=== PATIENT | female | born 1980 | race Caucasian/White ===

== ENCOUNTER 2020-10-20 17:18 | Outpatient (REF) | payer OTHER, SELFPAY | END 2020-10-20 17:19 | disposition home or self-care (01) | LOC: HO.LAB 17:18 | PROVIDERS: PCP Internal Medicine; Visit Provider Internal Medicine | DX: Z20.828 Contact with and (suspected) exposure to other viral communicable diseases (principal) | CPT/HCPCS: C9803; U0003 ==

== ENCOUNTER 2020-11-27 10:34 | Outpatient (REF) | payer OTHER, SELFPAY | END 2020-11-27 10:35 | disposition home or self-care (01) | LOC: HO.LAB 10:34 | PROVIDERS: Visit Provider Internal Medicine | DX: Z20.828 Contact with and (suspected) exposure to other viral communicable diseases (principal) | CPT/HCPCS: 36415; C9803; U0003 ==

== ENCOUNTER 2021-06-13 10:36 | Outpatient (REF) | payer OTHER, SELFPAY ==
[2021-06-13 12:05] LABS: Alanine Aminotransferase 16 U/L (0-31); Albumin Level 4.4 g/dL (3.5-5.0); Alkaline Phosphatase 47 U/L (39-117); Anion Gap 14 (12-20); Aspartate Amino Transferase 19 U/L (5-31); Bilirubin Total 0.6 mg/dL (0.0-1.0); Blood Urea Nitrogen 13 mg/dL (9-16); Calcium 9.6 mg/dL (8.4-10.2); Carbon Dioxide 23 mmol/L (22-29); Chloride 106 mmol/L (96-108); Cholesterol 240 mg/dL; Estimated Glomerular Filt Rate > 60; Glucose Fasting 93 mg/dL (60-99); HDL Cholesterol 36 mg/dL; LDL Cholesterol Calculated 162 mg/dl; Potassium 4.1 mmol/L (3.3-5.1); Sodium 139 mmol/L (135-145); Total Protein 7.4 g/dL (6.5-8.0); Triglycerides 211 mg/dL
== END 2021-06-13 10:37 | disposition home or self-care (01) ==
LOC: HO.LAB 10:36
PROVIDERS: PCP Internal Medicine; Visit Provider Internal Medicine
DX: E78.5 Hyperlipidemia, unspecified (principal)
CPT/HCPCS: 36415; 80053; 80061

== ENCOUNTER 2021-07-12 18:40 | Emergency (ER) | payer OTHER, SELFPAY ==
--- NOTE | ~2021-07-12 | XR_ITS ---
EXAMINATION: XR ANKLE, RIGHT CLINICAL INFORMATION: Injury with pain and swelling COMPARISON: None TECHNIQUE: AP, lateral, and mortise views of the right ankle. FINDINGS: Soft tissue swelling is seen about the ankle more so laterally. Underlying bony structures are unremarkable with no acute fracture or dislocation. Ankle mortise is intact. XR/XR ankle RT min 3V IMPRESSION: Lateral soft tissue swelling but no acute bony abnormality.
[2021-07-12 19:34] VITALS: BP 110/58; PULSE 77; RESP 16; TEMP 36.9; O2SAT 100; BMI 26.0
[2021-07-12 21:21] VITALS: BP 105/68; PULSE 81; RESP 17; TEMP 36.8; O2SAT 98
--- NOTE | 2021-07-12 22:05 | ED.LOWEXIN ---
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 Related Data Previous Rx's Medication Instructions Recorded loratadine 10 mg tablet 10 mg PO DAILY 90 Days #90 tab 05/24/21 Allergies Allergy/AdvReac Type Severity Reaction Status Date / Time No Known Allergies Allergy Unknown UNKNOWN Verified 07/12/21 19:37 Review of Systems Review of Systems: All other systems are reviewed and are negative Constitutional: Reports as per HPI and Reports no additional constitutional complaints Eyes: Reports as per HPI and Reports no additional eye complaints Reports system reviewed and no additional complaints, except as documented Cardiovascular: Reports as per HPI and Reports no additional cardiovascular complaints Respiratory: Reports as per HPI and Reports no additional respiratory complaints Gastrointestinal: Reports as per HPI and Reports no additional gastrointestinal complaints Genitourinary: Reports no additional female genitourinary complaints Musculoskeletal: Reports no additional musculoskeletal complaints Skin/Breast: Reports system reviewed and no additional complaints, except as docu Psychiatric: Reports no additional psychiatric complaints Endocrine: Reports no additional endocrine complaints Hematologic/Lymphatic: Reports no additional hematologic/lymphatic complaints Allergic/Immunologic: Reports no additional allergic/immunologic complaints Reports system reviewed and no additional complaints, except as documented and Reports Abnormal speech present PMFSH Past Medical History Medical History Allergic rhinitis Dyslipidemia Surgical History No pertinent past surgical history Family History Family History Mother Diabetes mellitus Father No problems noted. Social History Social History Housing: Apartment Alcohol intake: current Alcohol intake frequency: holidays/special occasions only Alcohol type: beer Patient Tobacco Use Status: Never used Tobacco e-Cigarette/Vaping Use: Never Used Second Hand Smoke Exposure: No Advance Directives: No Advance Directives Information Provided: Yes Patient : No service: No Current occupational status: employed Current occupational exposures/hazards: No Physical Exam Vital Signs: Vital Signs: Last Vital Signs Temp 98.3 F 07/12/21 21:21 Pulse 81 07/12/21 21:21 Resp 17 07/12/21 21:21 BP 105/68 07/12/21 21:21 Pulse Ox 98 07/12/21 21:21 Body Mass Index 26.0 Vital signs have been reviewed as appeared to be correct. Blood pressure normal. Heart rate normal. Respiration rate normal. Temperature normal. Oxygen saturation normal. Appearance: Alert. Oriented X3. No acute distress. Head: Normal external exam. Normocephalic. Atraumatic. No Rosales signs noted. No raccoon eyes noted Eyes: PERRLA. EOMI. Conjunctiva and sclera normal. Eyelids normal. ENT: TM's Normal. Pharynx normal. Uvula midline. Moist mucous membranes. No trismus noted. No drooling noted. No muffled voice noted. Neck: Normal inspection. Neck supple. FROM. No adenopathy. Thyroid Normal. No meningeal signs. No neck mass noted. CVS: Normal heart rate and rhythm. Heart sound normal. No murmurs noted. Pulses normal throughout. Respiratory: No respiratory distress. Painless inspiration. Breath sounds normal. No wheezes/rales/rhonchi noted. Chest nontender. No accessory muscle usage noted or decreased air movement noted. Abdomen: Soft and nontender. Bowel sounds normal in all 4 quadrants. No distention noted. No organomegaly noted. No visible injury noted. Back: No CVA tenderness. Full range of motion noted. Skin: Skin warm and dry. Normal skin color. Normal skin turgor. No rashes/lesions/lacerations noted. Extremities: Right ankle ecchymosis and swelling more on the lateral malleolus, no deformity, no step-off. Neuro: Oriented X 3. Cranial nerve exam: II-XII are grossly intact No motor deficit. No sensory deficit. Reflexes normal. Course Course Course Narrative: Assessment and plan. Right ankle sprain. NSAIDs, ice, Derrick bandage, crutches for non weight-bearing. MDM - Extremity Injury (Lower) Imaging Data Right ankle x-ray: Radiologist's impression: Lateral soft tissue swelling but no acute bony abnormality. Discharge Plan Discharge Clinical Impression: Ankle sprain Qualifiers: Encounter type: initial encounter Laterality: right Patient Disposition: Home, Self-Care Instructions: Ankle Sprain (ED) Prescriptions: No Action loratadine 10 mg tablet 10 mg PO DAILY 90 Days Qty: 90 RF: 2 Referrals: Yissel Saavedra MD [Primary Care Provider] - 2 days Stand Alone Forms: Work/School Release
== END 2021-07-12 22:47 | disposition home or self-care (01) ==
PROVIDERS: Emergency Provider Emergency Medicine; PCP Internal Medicine
DX: S93.401A Sprain of unspecified ligament of right ankle, initial encounter (principal); X50.1XXA Overexertion from prolonged static or awkward postures, initial encounter; Y93.44 Activity, trampolining; Y92.017 Garden or yard in single-family (private) house as the place of occurrence of the external cause; Y99.9 Unspecified external cause status
CPT/HCPCS: 73610; 99283

== ENCOUNTER 2021-10-25 12:05 | Outpatient (REF) | payer OTHER, SELFPAY ==
--- NOTE | ~2021-10-25 | MM_ITS ---
EXAMINATION: MM SCREENING DIGITAL BREAST TOMOSYNTHESIS, BILATERAL CLINICAL INFORMATION: Screening. Asymptomatic. Age 41. No known family history breast cancer. The lifetime risk of breast cancer based on the Tyrer-Cuzick Model is 7%. COMPARISON: None (current study represents initial baseline exam). TECHNIQUE: Digital breast tomosynthesis is performed in both the craniocaudal and mediolateral oblique views along with computer-aided detection (CAD). Synthesized 2D images are generated from the tomosynthesis. FINDINGS: The breasts are heterogeneously dense, which may obscure small masses (ACR BI-RADS breast composition Category c). There are no significant masses, abnormal calcifications, or other abnormalities. The axilla and skin contours are unremarkable. MM/MM tomosynthesis screening BI IMPRESSION: No mammographic evidence of malignancy. ASSESSMENT: BI-RADS 1: Negative RECOMMENDATION: Routine annual mammography screening. This patient's information was entered into a reminder system with a target due date for their next mammogram.
== END 2021-10-25 12:06 | disposition home or self-care (01) ==
LOC: HO.MAMMO 12:05
PROVIDERS: Visit Provider Internal Medicine
DX: Z12.31 Encounter for screening mammogram for malignant neoplasm of breast (principal)
CPT/HCPCS: 77063; 77067

== ENCOUNTER 2021-12-11 08:20 | Outpatient (REF) | payer OTHER, SELFPAY ==
--- NOTE | ~2021-12-11 | XR_ITS ---
EXAMINATION: XR SACROILIAC JOINTS CLINICAL INFORMATION: Sacrococcygeal disorder COMPARISON: None TECHNIQUE: 3 views of the sacroiliac joints FINDINGS: Bones and soft tissues are normal. No fracture. Alignment is anatomic. Sacroiliac joint spaces are well-maintained without erosions or surrounding sclerosis. There is an IUD well located in the pelvis. There are several phleboliths visualized. XR/XR sacroiliac joint min 3V IMPRESSION: Unremarkable SI joints.
[2021-12-11 09:36] LABS: Alanine Aminotransferase 49 U/L (0-31); Albumin Level 4.1 g/dL (3.5-5.0); Alkaline Phosphatase 48 U/L (39-117); Anion Gap 10 (12-20); Aspartate Amino Transferase 24 U/L (5-31); Bilirubin Total 0.7 mg/dL (0.0-1.0); Blood Urea Nitrogen 11 mg/dL (9-16); Calcium 9.8 mg/dL (8.4-10.2); Carbon Dioxide 27 mmol/L (22-29); Chloride 106 mmol/L (96-108); Cholesterol 140 mg/dL; Estimated Glomerular Filt Rate > 60; Glucose Fasting 97 mg/dL (60-99); HDL Cholesterol 36 mg/dL; LDL Cholesterol Calculated 87 mg/dl; Potassium 4.2 mmol/L (3.3-5.1); Sodium 139 mmol/L (135-145); Total Protein 6.9 g/dL (6.5-8.0); Triglycerides 85 mg/dL
== END 2021-12-11 08:21 | disposition home or self-care (01) ==
LOC: HO.LAB 08:20
PROVIDERS: PCP Internal Medicine; Visit Provider Internal Medicine
DX: M53.3 Sacrococcygeal disorders, not elsewhere classified (principal); E78.5 Hyperlipidemia, unspecified
CPT/HCPCS: 36415; 72202; 80053; 80061

== ENCOUNTER 2022-05-29 08:31 | Outpatient (REF) | payer OTHER, SELFPAY ==
[2022-05-29 10:00] LABS: Alanine Aminotransferase 27 U/L (0-31); Albumin Level 4.4 g/dL (3.5-5.0); Alkaline Phosphatase 50 U/L (39-117); Anion Gap 11 (12-20); Aspartate Amino Transferase 23 U/L (5-31); Bilirubin Total 0.7 mg/dL (0.0-1.0); Blood Urea Nitrogen 9 mg/dL (9-16); Calcium 9.7 mg/dL (8.4-10.2); Carbon Dioxide 25 mmol/L (22-29); Chloride 106 mmol/L (96-108); Cholesterol 169 mg/dL; Estimated Glomerular Filt Rate > 60; Glucose Fasting 98 mg/dL (60-99); HDL Cholesterol 40 mg/dL; LDL Cholesterol Calculated 103 mg/dl; Sodium 138 mmol/L (135-145); Total Protein 7.2 g/dL (6.5-8.0); Triglycerides 130 mg/dL
== END 2022-05-29 08:32 | disposition home or self-care (01) ==
LOC: HO.LAB 08:31
PROVIDERS: PCP Internal Medicine; Visit Provider Internal Medicine
DX: Z00.00 Encounter for general adult medical examination without abnormal findings (principal); E78.5 Hyperlipidemia, unspecified
CPT/HCPCS: 36415; 80053; 80061

== ENCOUNTER 2023-03-20 13:33 | Outpatient (REF) | payer OTHER, SELFPAY ==
--- NOTE | ~2023-03-20 | MM_ITS ---
EXAMINATION: MM SCREENING DIGITAL BREAST TOMOSYNTHESIS, BILATERAL CLINICAL INFORMATION: Screening. Asymptomatic. The lifetime risk of breast cancer based on the Tyrer-Cuzick Model is 7%. COMPARISON: Mammography: 10/25/2021. TECHNIQUE: Digital breast tomosynthesis is performed in both the craniocaudal and mediolateral oblique views along with computer-aided detection (CAD). Synthesized 2D images are generated from the tomosynthesis. FINDINGS: The breasts are heterogeneously dense, which may obscure small masses (ACR BI-RADS breast composition Category c). About the deep lateral aspect of the left breast there is an ill-defined density containing calcifications for which spot magnification view is recommended. There is a partially circumscribed density about the central aspect of the left breast on craniocaudal view measuring 7 mm in diameter. This lies approximately 4 cm from the nipple with the region of calcifications lying approximately 5.5 cm from the nipple. The right breast appears stable. MM/MM tomosynthesis screening BI IMPRESSION: Left breast findings for further evaluation. ASSESSMENT: BI-RADS 0: Incomplete - Need additional imaging evaluation. RECOMMENDATION: 1. Additional views of the left breast. 2. Targeted ultrasound if warranted after review of the additional views. 3. Radiology department staff will contact the patient for additional imaging. This patient's information was entered into a reminder system with a target due date for their next mammogram.
== END 2023-03-20 13:34 | disposition home or self-care (01) ==
LOC: HO.MAMMO 13:33
PROVIDERS: Visit Provider Internal Medicine
DX: Z12.31 Encounter for screening mammogram for malignant neoplasm of breast (principal)
CPT/HCPCS: 77063; 77067

== ENCOUNTER 2023-04-22 13:18 | Outpatient (REF) | payer OTHER, SELFPAY ==
--- NOTE | ~2023-04-22 | MM_ITS ---
EXAMINATION: MM DIAGNOSTIC DIGITAL BREAST TOMOSYNTHESIS, LEFT US DIAGNOSTIC ULTRASOUND BREAST, LEFT CLINICAL INFORMATION: Recall from screening for calcifications outer left breast and smooth nodular asymmetry central lower left breast. TC score 7%. No known family history breast cancer. COMPARISON: Mammography: 03/20/2023, 10/25/2021 TECHNIQUE: Digital breast tomosynthesis is performed. 2D images are generated from the tomosynthesis. The following views are obtained: Magnification left CC x2, magnification ML. Ultrasound left breast is targeted to the central breast interrogated from several quadrants using grayscale imaging and color Doppler without and with harmonics. FINDINGS: The breasts are heterogeneously dense, which may obscure small masses (ACR BI-RADS breast composition Category c). The additional views demonstrate multiple fine calcifications upper outer quadrant and segmental/ductal orientation at least 3 cm in length posterior to anterior. This represents change from prior mammography. The CC view also shows a circumscribed benign-appearing nodule central breast under 1 cm corresponding to the recent screening exam tomographic images. Ultrasound left breast demonstrates several small simple cysts with circumscribed margins and increased through-transmission of sound and no associated color flow. Largest is approximately 0.6 cm central 6:00 position corresponding to finding on mammography. Results are discussed with the patient at time of visit, using an forms analysis manager. Stereotactic sampling of the left breast calcifications is recommended, preferably at 2 locations along the involved segment. MM/MM tomosynthesis added views L IMPRESSION: -Fine calcifications upper outer quadrant and segmental/ductal orientation, change from prior exam. -Incidental cyst central left breast corresponding to recent screening exam. ASSESSMENT: BI-RADS 4: Suspicious RECOMMENDATION: Stereotactic biopsy left breast calcifications, preferably at 2 locations along the involved segment. This patient's information was entered into a reminder system with a target due date for their next mammogram.
== END 2023-04-22 13:19 | disposition home or self-care (01) ==
LOC: HO.MAMMO 13:18
PROVIDERS: PCP Internal Medicine; Visit Provider Internal Medicine
DX: R92.2 Inconclusive mammogram (principal)
CPT/HCPCS: 76642; 77061; 77065

== ENCOUNTER 2023-04-24 09:46 | Outpatient (REF) | payer OTHER, SELFPAY ==
--- NOTE | ~2023-04-24 | MM_ITS ---
EXAMINATION: STEREOTACTIC TOMOSYNTHESIS-GUIDED VACUUM-ASSISTED BREAST BIOPSY (TWO SITES), LEFT SPECIMEN RADIOGRAPHS (TWO SPECIMENS), LEFT POST PROCEDURE DIGITAL MAMMOGRAM, LEFT CLINICAL INFORMATION: Fine calcifications upper outer quadrant, segmental/ductal orientation for tissue sampling.. COMPARISON: Mammography 04/22/2023, 03/20/2023, 10/25/2021, ultrasound left breast 04/22/2023. TECHNIQUE/PROCEDURE: Informed consent was obtained from the patient after discussion of the benefits, risks, and alternatives to biopsy today. Patient appeared to understand. Gave opportunity for questions. Patient signed consent form. Hospital provided team driver assisted for the consent and throughout the procedure and home instructions. Specimen A: BIOPSY TABLE: Hologic Affirm Prone Biopsy System. LESION: Calcifications upper outer left breast, posterior. LOCAL ANESTHESIA: 6 mL carbonated 1% lidocaine; 10 mL 1% lidocaine with epinephrine. DERMATOTOMY: Single skin caleb dermatotomy performed. NEEDLE: Suros Eviva 9-gauge vacuum assisted core biopsy device. APPROACH: Craniocaudal. TARGETING: Combination of digital breast tomosynthesis and stereotactic digital mammography used for targeting. CORES: 8. CLIP: Suros SecurMark T-shaped marker. SPECIMEN RADIOGRAPH (A): Specimen radiograph is taken in separate room using digital mammography. The index calcifications are in the excised cores. There are at least 15 calcifications in the cores. Specimen B: Fresh biopsy supplies are used for 2nd biopsy site. BIOPSY TABLE: Hologic Affirm Prone Biopsy System. LESION: Calcifications upper outer left breast, anterior. LOCAL ANESTHESIA: 10 mL carbonated 1% lidocaine; 10 mL 1% lidocaine with epinephrine. DERMATOTOMY: Single skin caleb dermatotomy performed. NEEDLE: Suros Eviva 9-gauge vacuum assisted core biopsy device. APPROACH: Craniocaudal. TARGETING: Combination of digital breast tomosynthesis and stereotactic digital mammography used for targeting. CORES: 8. CLIP: Suros SecurMark Cylinder-shaped marker. SPECIMEN RADIOGRAPH (B): Specimen radiograph is taken in separate room using digital mammography. The index calcifications are in the excised cores. There are at least 12 calcifications in the cores. POST PROCEDURE UNILATERAL DIGITAL MAMMOGRAM: The post biopsy mammogram is performed in separate room using separate digital mammography equipment from the biopsy procedure. CC and ML views are obtained. The breasts are heterogeneously dense, which may obscure small masses (breast composition category: c). The clip markers are in position. The calcifications are decreased at both biopsy sites. No gross hematoma. The patient tolerated the procedure well. No immediate complications. Home instructions reviewed with the patient. Final pathology results are pending. MM/MM stereotactic biopsy ea add IMPRESSION: 1. Digital tomosynthesis-guided core biopsy left breast with clip placement, 2 sites upper outer quadrant. 2. Specimen radiograph taken and post procedure mammogram. There is satisfactory positioning of the biopsy clips. 3. Final pathology results pending. An addendum report will be issued.
--- NOTE | ~2023-04-24 | MM_ITS ---
EXAMINATION: STEREOTACTIC TOMOSYNTHESIS-GUIDED VACUUM-ASSISTED BREAST BIOPSY (TWO SITES), LEFT SPECIMEN RADIOGRAPHS (TWO SPECIMENS), LEFT POST PROCEDURE DIGITAL MAMMOGRAM, LEFT CLINICAL INFORMATION: Fine calcifications upper outer quadrant, segmental/ductal orientation for tissue sampling.. COMPARISON: Mammography 04/22/2023, 03/20/2023, 10/25/2021, ultrasound left breast 04/22/2023. TECHNIQUE/PROCEDURE: Informed consent was obtained from the patient after discussion of the benefits, risks, and alternatives to biopsy today. Patient appeared to understand. Gave opportunity for questions. Patient signed consent form. Hospital provided cane feeder assisted for the consent and throughout the procedure and home instructions. Specimen A: BIOPSY TABLE: Hologic Affirm Prone Biopsy System. LESION: Calcifications upper outer left breast, posterior. LOCAL ANESTHESIA: 6 mL carbonated 1% lidocaine; 10 mL 1% lidocaine with epinephrine. DERMATOTOMY: Single skin caleb dermatotomy performed. NEEDLE: Suros Eviva 9-gauge vacuum assisted core biopsy device. APPROACH: Craniocaudal. TARGETING: Combination of digital breast tomosynthesis and stereotactic digital mammography used for targeting. CORES: 8. CLIP: Suros SecurMark T-shaped marker. SPECIMEN RADIOGRAPH (A): Specimen radiograph is taken in separate room using digital mammography. The index calcifications are in the excised cores. There are at least 15 calcifications in the cores. Specimen B: Fresh biopsy supplies are used for 2nd biopsy site. BIOPSY TABLE: Hologic Affirm Prone Biopsy System. LESION: Calcifications upper outer left breast, anterior. LOCAL ANESTHESIA: 10 mL carbonated 1% lidocaine; 10 mL 1% lidocaine with epinephrine. DERMATOTOMY: Single skin caleb dermatotomy performed. NEEDLE: Suros Eviva 9-gauge vacuum assisted core biopsy device. APPROACH: Craniocaudal. TARGETING: Combination of digital breast tomosynthesis and stereotactic digital mammography used for targeting. CORES: 8. CLIP: Suros SecurMark Cylinder-shaped marker. SPECIMEN RADIOGRAPH (B): Specimen radiograph is taken in separate room using digital mammography. The index calcifications are in the excised cores. There are at least 12 calcifications in the cores. POST PROCEDURE UNILATERAL DIGITAL MAMMOGRAM: The post biopsy mammogram is performed in separate room using separate digital mammography equipment from the biopsy procedure. CC and ML views are obtained. The breasts are heterogeneously dense, which may obscure small masses (breast composition category: c). The clip markers are in position. The calcifications are decreased at both biopsy sites. No gross hematoma. The patient tolerated the procedure well. No immediate complications. Home instructions reviewed with the patient. Final pathology results are pending. MM/MM stereotactic biopsy LT IMPRESSION: 1. Digital tomosynthesis-guided core biopsy left breast with clip placement, 2 sites upper outer quadrant. 2. Specimen radiograph taken and post procedure mammogram. There is satisfactory positioning of the biopsy clips. 3. Final pathology results pending. An addendum report will be issued.
[2023-04-24] MEDS: Lidocaine HCl 1 % 20 ML VIAL 16 ML SUBCUT (11:46)
[2023-04-24] MEDS: Lidocaine HCl 1%/Epi 1:100,000 10 ML VIAL 20 ML SUBCUT (11:49)
[2023-04-24] MEDS: Sodium Bicarbonate 8.4% 50 MEQ/50 ML VIAL SUBCUT (11:50)
== END 2023-04-24 09:47 | disposition home or self-care (01) ==
LOC: HO.MAMMO 09:46
PROVIDERS: PCP Internal Medicine; Visit Provider Surgery
DX: R92.8 Other abnormal and inconclusive findings on diagnostic imaging of breast (principal)
CPT/HCPCS: 19081; 19082; 88305; 99202; A4648

== ENCOUNTER → 2023-05-01 10:47 | Outpatient (BNVA) | payer OTHER, SELFPAY | PROVIDERS: PCP Internal Medicine; Visit Provider Surgery | DX: R92.8 Other abnormal and inconclusive findings on diagnostic imaging of breast (principal); Z98.890 Other specified postprocedural states | CPT/HCPCS: 99212 ==

== ENCOUNTER 2023-06-11 08:28 | Outpatient (AMB) | payer OTHER, SELFPAY ==
[2023-06-11 08:42] VITALS: BP 102/70; BMI 27.2
--- NOTE | 2023-06-11 08:42 | MHC.PC.OV ---
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 Accompanied by: Self / Same As Patient Allergies No Known Allergies Allergy (Unknown, Verified 06/11/23 08:54) UNKNOWN Medication List - Last Reconciled 06/11/23 by Yissel Davidson MD atorvastatin 20 mg PO BEDTIME 90 days Tobacco use date assessed: 06/11/23 Dental Screening Dental Screen Date: 06/11/23 Did you have a dental visit in the last 12 months?: Yes Did you have a dental problem in the last 6 months where you did not have access to dental care?: No Was dental information given to patient?: Patient has dentist HPI HPI Comments History of Present Illness Details This is a 42-year-old female that comes for her physical exam. Pap smear done 2 years ago at [facility]. Mammogram done 2022. No chest pain or shortness of breath. No fever or cough. Labs were discussed. [facility] Medical History Allergic rhinitis Dyslipidemia Overweight (BMI 25.0-29.9) Sacral pain Surgical History No pertinent past surgical history Family History Mother Diabetes mellitus Father No problems noted. Social History Housing: Apartment Alcohol intake: current Alcohol intake frequency: holidays/special occasions only Alcohol type: beer Patient Tobacco Use Status: Never used Tobacco e-Cigarette/Vaping Use: Never Used Second Hand Smoke Exposure: No service: No Current occupational status: employed Current occupational exposures/hazards: No Cognitive needs: No Hearing needs: No Vision needs: No Female Reproductive History Menstrual Age of Menarche: 15 Questionnaire PHQ-9 Over the last 2 weeks, how often have you been bothered by any of the following problems? 1. Little interest or pleasure in doing things: not at all 2. Feeling down, depressed, or hopeless: not at all 3. Trouble falling or staying asleep, or sleeping too much: not at all 4. Feeling tired or having little energy: not at all 5. Poor appetite or overeating: not at all 6. Feeling bad about yourself - or that you are a failure or have let yourself or your family down: not at all 7. Trouble concentrating on things, such as reading the newspaper or watching television: not at all 8. Moving or speaking so slowly that other people could have noticed. Or the opposite - being so fidgety or restless that you have been moving around a lot more than usual: not at all 9. Thoughts that you would be better off or of hurting yourself in some way: not at all Total score: 0 Depression Screening Interpretation: Negative 48640 - PHQ-9 Billing: Yes Source: Developed by Drs. John Irby, Lashell Hart, Nicolas Betancur and colleagues, with an educational toño from [employer]. Thrive Questionnaire Date Thrive assessed: 06/11/23 I am a: Patient What is your living situation today?: I have a steady place to live Within the past 12 months, did the food you bought not last and you didn't have the money to get more?: Never true Within the past 12 months, did you worry whether your food would run out before you got money to buy more?: Never true Do you have trouble paying for medicines?: No Do you have trouble getting transportation to medical appointments?: No Do you have trouble paying your heating and electricity bill?: No Do you have trouble taking care of your child, family member or friend?: No Do you have trouble with day-to-day activities such as bathing, preparing meals, shopping, managing finances, etc.?: No Are you currently unemployed and looking for a job?: No Are you interested in more education?: No Please select the resources that you would like help with: None Currently or been in a relationship where the following occur: no concerns reported AUDIT C Alcohol Use Questionnaire (AUDIT-C) 1. How often do you have a drink containing alcohol?: Monthly or less 2. How many drinks containing alcohol do you have on a typical day when you are drinking?: 1 or 2 3. How often do you have six or more drinks on one occasion?: Never Total Score: 1 Score Reviewed/Action Taken: No COLLIN-7 AMB Questionnaire COLLIN-7 Date COLLIN - 7 assessed: 06/11/23 Feeling nervous, anxious, or on edge: 0 = Not at all Not being able to stop or control worryin = Not at all Worrying too much about different things: 0 = Not at all Trouble relaxin = Not at all Being so restless that it is hard to sit still: 0 = Not at all Becoming easily annoyed or irritable: 0 = Not at all Feeling afraid as if something awful might happen: 0 = Not at all Total COLLIN-7 score (0-4 normal; 5-9 mild; 10-14 moderate; 15-21 severe): 0 Source: Developed by Drs. John Irby, Lashell Hart, Nicolas Betancur and colleagues, with an educational toño from [employer]. COLLIN-7 Assessment Billing COLLIN-7 Assessment Tool: COLLIN-7 Assessment 59288 Review of Systems Const All systems reviewed & are unremarkable except as noted in HPI and below Eyes Reports no additional complaints, Denies change in vision and Denies other visual disturbances Card Denies chest pain at rest, Denies chest pain with activity, Denies edema, Denies irregular heart rhythm, Denies claudication, Denies dyspnea, Denies dyspnea on exertion, Denies orthopnea, Denies paroxysmal nocturnal dyspnea and Denies slow heart rate Resp Denies cough, Denies dyspnea and Denies dyspnea on exertion GI Denies abdominal pain, Denies change in bowel habits, Denies excessive flatus, Denies nausea and Denies vomiting Denies urinary incontinence, Denies urinary hesitancy and Denies urinary urgency Musc Denies abnormal gait, Denies atrophy, Denies deformity and Denies limited range of motion Skin/Breast Denies bleeding lesions, Denies changing lesions and Denies rash Neuro Denies abnormal gait and Denies lack of coordination Physical exam (Primary Care) Vital Signs: Last Vital Signs BP 102/70 06/11/23 08:42 BMI result Body Mass Index 27.2 Tobacco/Smoking Status: Tobacco use Status Tobacco use date assessed 06/11/23 06/11/23 08:46 Patient Tobacco Use Status Never used Tobacco 06/11/23 08:46 e-Cigarette/Vaping Use Never Used 06/11/23 08:46 PHQ-9: PHQ-9 Score PHQ-9: Total score 0 06/11/23 08:46 Depression Screening Interpretation: Negative Thrive Assessment: Date of Thrive Assessment Date Thrive assessed 06/11/23 06/11/23 08:46 Currently or been in a relationship where the following occur: no concerns reported Const Orientation/consciousness: patient oriented x3 HENMT Head: Yes normal to inspection, Yes normocephalic and Yes atraumatic Ears: external ears normal Eyes General: appearance normal, both eyes and all related structures Eyelids: Yes eyelids normal Conjunctivae: conjunctivae normal Neck Neck: Yes normal visual inspection and Yes supple Resp Effort & Inspection: normal respiratory effort Auscultation: clear to auscultation bilaterally Cardio Jugular venous distension: no JVD Rate: regular rate Rhythm: regular rhythm Heart sounds: S1 normal heart sound present and S2 normal heart sound present GI Inspection: Yes normal to inspection Palpation (GI): Soft to palpation and nontender Auscultation: normal bowel sounds Skin General skin exam: no rashes or lesions noted Neuro General: patient oriented x3 and no focal motor deficits Extrem General: Yes full ROM Psych Appearance: grossly normal Assessment and Plan Assessment & Plan (1) Physical exam: Code(s): Z00.00 - Encounter for general adult medical examination without abnormal findings Plan: Repeat in a year Coding Level of Care Code Est Pt Prev Care 40-64y(73610) Diagnoses Physical exam Z00.00 Additional Codes COLLIN-7 Assessment Billing - COLLIN-7 Assessment Tool: COLLIN-7 Assessment 06278 ([id number]) Time Spent (min) 31
== END 2023-06-11 09:01 | disposition home or self-care (01) ==
PROVIDERS: PCP Internal Medicine; Visit Provider Internal Medicine
DX: Z00.00 Encounter for general adult medical examination without abnormal findings (principal)
CPT/HCPCS: 99396

== ENCOUNTER 2023-11-03 13:19 | Outpatient (REF) | payer OTHER, SELFPAY ==
--- NOTE | ~2023-11-03 | US_ITS ---
EXAMINATION: MM DIAGNOSTIC DIGITAL BREAST TOMOSYNTHESIS, LEFT US BREAST LIMITED, LEFT MAMMOGRAPHY: CLINICAL INFORMATION: Patient 43-year-old female 6 month follow-up from calcification double benign biopsy from 04/22/2023. Patient also complaining of palpable focus of concern in the left breast at approximately 3:00 location, posterior depth. COMPARISON: Mammography: Stereotactic biopsy 04/24/2023, mammography dated views 04/22/2023 with associated left breast ultrasound, bilateral tunnel screening 03/20/2023, and 10/25/2021. TECHNIQUE: Digital left breast tomosynthesis is performed in both the following views: Full-field left CC 3-D view, full-field left MLO 3-D view, full-field left ML 3-D view, and 2-D spot magnification left CC and ML views. FINDINGS: The breasts are heterogeneously dense, which may obscure small masses (ACR BI-RADS breast composition Category c). A BB marker has been placed in the area of palpable concern approximate 3:00 axis posterior one third left breast. No definite underlying mammographic mass or distortion underlying. There are 2 biopsy markers in the upper mid and lateral left breast, both which demonstrated no evidence of atypia or malignancy, and residual punctate benign-appearing calcifications surrounding the top hat biopsy clip. No residual calcifications are seen surrounding the cylinder biopsy clip. There are several circumscribed masses in the left breast of which some appear to likely represent cysts and some appear to likely represent lymph nodes. These will be evaluated by ultrasound as well as the palpable focus. ULTRASOUND: CLINICAL INFORMATION: As above. COMPARISON: Left breast ultrasound 04/22/2023, noncontributory. TECHNIQUE: Targeted sonographic evaluation was performed using a high frequency linear transducer. Attention was given to the palpable focus of concern 3:00 axis, as well as central circumscribed oval masses. Selected archived documentation. FINDINGS: LEFT BREAST: Ultrasound of the palpable focus of concern lower outer quadrant left breast demonstrates no abnormality. There is no imaging correlate. In the 6:00 axis, 3 cm from the nipple, there is a 4 cm simple cyst. In the 6:00 axis, 3 cm from the nipple, there is a 5 mm oval simple cyst. In the 12:00 axis, 2 cm from the nipple, there is a 5 mm oval simple cyst. In the 12:00 axis of the left breast 2 cm from the nipple, there is a 7 mm oval simple cyst present. These findings are consistent with fibrocystic changes and are benign. There is no solid mass or areas of abnormal shadowing. US/US breast LT limited mamm only IMPRESSION: There are no findings suspicious for malignancy in the left breast. There are residual calcifications which appear benign and unchanged surrounding the top hat biopsy clip. There are no residual calcifications surrounding the cylinder biopsy clip. Pathology demonstrated no atypia or malignancy at either site. Palpable focus in the approximate 3:00 axis of the left breast shows no imaging correlate. Clinical management recommended. Several cysts within the central left breast consistent with fibrocystic changes on ultrasound. Recommend the patient resume annual routine screening mammography in 6 months when she is due for bilateral. OVERALL ASSESSMENT: Mammography: BI-RADS 2 - Benign Findings Ultrasound: BI-RADS 2 - Benign Findings RECOMMENDATION: 1 year F/U Results were provided to the patient at time of visit by the technologist. This patient's information was entered into a reminder system with a target due date for their next mammogram.
== END 2023-11-03 13:20 | disposition home or self-care (01) ==
LOC: HO.MAMMO 13:19
PROVIDERS: PCP Internal Medicine; Visit Provider Surgery
DX: R92.8 Other abnormal and inconclusive findings on diagnostic imaging of breast (principal)
CPT/HCPCS: 76642; 77061; 77065

== ENCOUNTER → 2023-11-03 13:30 | Outpatient (BNV) | payer OTHER, SELFPAY | PROVIDERS: PCP Internal Medicine; Visit Provider Radiology Diagnostic Radiology | DX: R92.1 Mammographic calcification found on diagnostic imaging of breast (principal) | CPT/HCPCS: 76642; 77061; 77065 ==

== ENCOUNTER 2024-04-16 13:27 | Outpatient (REF) | payer OTHER, SELFPAY ==
--- NOTE | ~2024-04-16 | MM_ITS ---
EXAMINATION: MM SCREENING DIGITAL BREAST TOMOSYNTHESIS, BILATERAL CLINICAL INFORMATION: Screening. Asymptomatic. COMPARISON: Mammography: This study is compared with prior exams dating back to 2020. TECHNIQUE: Digital breast tomosynthesis is performed in both the craniocaudal and mediolateral oblique views along with computer-aided detection (CAD). Synthesized 2D images are generated from the tomosynthesis. FINDINGS: There are scattered areas of fibroglandular density (ACR BI-RADS breast composition Category b). There are no significant masses, abnormal calcifications, or other abnormalities. There are 2 tissue markers in the upper outer quadrant of the left breast from prior benign stereotactic biopsies. MM/MM tomosynthesis screening BI IMPRESSION: No mammographic evidence of malignancy. ASSESSMENT: BI-RADS BI-RADS 2 - Benign Findings RECOMMENDATION: Routine annual mammography screening. 1 year F/U This examination should not preclude the clinical evaluation of a suspicious palpable abnormality. This patient's information was entered into a reminder system with a target due date for their next mammogram.
== END 2024-04-16 13:28 | disposition home or self-care (01) ==
LOC: HO.MAMMO 13:27
PROVIDERS: PCP Internal Medicine; Visit Provider Internal Medicine
DX: Z12.31 Encounter for screening mammogram for malignant neoplasm of breast (principal)
CPT/HCPCS: 77063; 77067

== ENCOUNTER → 2024-04-16 13:45 | Outpatient (BNV) | payer OTHER, SELFPAY | PROVIDERS: PCP Internal Medicine; Visit Provider Radiology Diagnostic Radiology | DX: Z12.31 Encounter for screening mammogram for malignant neoplasm of breast (principal) | CPT/HCPCS: 77063; 77067 ==

== ENCOUNTER 2024-06-16 08:17 | Outpatient (AMB) | payer OTHER, SELFPAY ==
[2024-06-16 08:20] VITALS: BP 118/72; BMI 27.6
--- NOTE | 2024-06-16 08:20 | MHC.PC.OV ---
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 Accompanied by: Self / Same As Patient Allergies No Known Allergies Allergy (Unknown, Verified 06/16/24 08:50) UNKNOWN Medication List - Last Reconciled 06/16/24 by Yissel Davidson MD No Known Home Meds Tobacco use date assessed: 06/16/24 Dental Screening Dental Screen Date: 06/16/24 Did you have a dental visit in the last 12 months?: Yes Did you have a dental problem in the last 6 months where you did not have access to dental care?: No Was dental information given to patient?: Patient has dentist HPI HPI Comments History of Present Illness Details This is a 43-year-old female that comes for her physical exam. Last mammogram was 2023 and was normal. Pap smear done 2023 at [facility] was normal as per patient. Denies any acute complaints. [facility] Medical History Overweight (BMI 25.0-29.9) Sacral pain Dyslipidemia Allergic rhinitis Surgical History History of tubal ligation Family History Mother Diabetes mellitus Father No problems noted. Social History Housing: Apartment Alcohol intake: current Alcohol intake frequency: holidays/special occasions only Alcohol type: beer Patient Tobacco Use Status: Never used Tobacco e-Cigarette/Vaping Use: Never Used Second Hand Smoke Exposure: No service: No Current occupational status: employed Current occupational exposures/hazards: No Cognitive needs: No Hearing needs: No Vision needs: No Female Reproductive History Menstrual Age of Menarche: 15 Questionnaire PHQ-9 Over the last 2 weeks, how often have you been bothered by any of the following problems? 1. Little interest or pleasure in doing things: not at all 2. Feeling down, depressed, or hopeless: not at all 3. Trouble falling or staying asleep, or sleeping too much: not at all 4. Feeling tired or having little energy: not at all 5. Poor appetite or overeating: not at all 6. Feeling bad about yourself - or that you are a failure or have let yourself or your family down: not at all 7. Trouble concentrating on things, such as reading the newspaper or watching television: not at all 8. Moving or speaking so slowly that other people could have noticed. Or the opposite - being so fidgety or restless that you have been moving around a lot more than usual: not at all 9. Thoughts that you would be better off or of hurting yourself in some way: not at all Total score: 0 Depression Screening Interpretation: Negative Depression Screening Done: Yes 05954 - PHQ-9 Billing: Yes Source: Developed by Drs. John Irby, Lashell Hart, Nicolas Betancur and colleagues, with an educational toño from [employer]. Thrive Questionnaire Date Thrive assessed: 06/16/24 I am a: Patient What is your living situation today?: I have a steady place to live Within the past 12 months, did the food you bought not last and you didn't have the money to get more?: Never true Within the past 12 months, did you worry whether your food would run out before you got money to buy more?: Never true Do you have trouble paying for medicines?: No Do you have trouble getting transportation to medical appointments?: No Do you have trouble paying your heating and electricity bill?: No Do you have trouble taking care of your child, family member or friend?: No Do you have trouble with day-to-day activities such as bathing, preparing meals, shopping, managing finances, etc.?: No Are you currently unemployed and looking for a job?: No Are you interested in more education?: No Please select the resources that you would like help with: None Currently or been in a relationship where the following occur: No concerns reported THRIVE Score: 0 AUDIT C Alcohol Use Questionnaire (AUDIT-C) 1. How often do you have a drink containing alcohol?: Monthly or less 2. How many drinks containing alcohol do you have on a typical day when you are drinking?: 1 or 2 3. How often do you have six or more drinks on one occasion?: Never Total Score: 1 Score Reviewed/Action Taken: No COLLIN-7 AMB Questionnaire COLLIN-7 Date COLLIN - 7 assessed: 06/16/24 Feeling nervous, anxious, or on edge: 0 = Not at all Not being able to stop or control worryin = Not at all Worrying too much about different things: 0 = Not at all Trouble relaxin = Not at all Being so restless that it is hard to sit still: 0 = Not at all Becoming easily annoyed or irritable: 0 = Not at all Feeling afraid as if something awful might happen: 0 = Not at all Total COLLIN-7 score (0-4 normal; 5-9 mild; 10-14 moderate; 15-21 severe): 0 Source: Developed by Drs. John Irby, Lashell Hart, Nicolas Betancur and colleagues, with an educational toño from [employer]. COLLIN-7 Assessment Billing COLLIN-7 Assessment Tool: COLLIN-7 Assessment 76997 Review of Systems Const All systems reviewed & are unremarkable except as noted in HPI and below Card Denies chest pain at rest, Denies chest pain with activity, Denies edema, Denies irregular heart rhythm, Denies claudication, Denies dyspnea, Denies dyspnea on exertion, Denies orthopnea, Denies paroxysmal nocturnal dyspnea and Denies slow heart rate Resp Denies cough, Denies dyspnea and Denies dyspnea on exertion GI Denies abdominal pain, Denies change in bowel habits, Denies excessive flatus, Denies nausea and Denies vomiting Physical exam (Primary Care) Vital Signs: Last Vital Signs BP 118/72 06/16/24 08:20 BMI result Body Mass Index 27.6 Tobacco/Smoking Status: Tobacco use Status Tobacco use date assessed 06/16/24 06/16/24 08:31 Patient Tobacco Use Status Never used Tobacco 06/16/24 08:25 e-Cigarette/Vaping Use Never Used 06/16/24 08:25 PHQ-9: PHQ-9 Score PHQ-9: Total score 0 06/16/24 08:31 Depression Screening Interpretation: Negative Thrive Assessment: Date of Thrive Assessment Date Thrive assessed 06/16/24 06/16/24 08:31 Currently or been in a relationship where the following occur: No concerns reported HENMT Head: Yes normal to inspection, Yes normocephalic and Yes atraumatic Ears: external ears normal Eyes General: appearance normal, both eyes and all related structures Eyelids: Yes eyelids normal Conjunctivae: conjunctivae normal Neck Neck: Yes normal visual inspection and Yes supple Resp Effort & Inspection: normal respiratory effort Auscultation: clear to auscultation bilaterally Cardio Jugular venous distension: no JVD Rate: regular rate Rhythm: regular rhythm Heart sounds: S1 normal heart sound present and S2 normal heart sound present GI Inspection: Yes normal to inspection Palpation (GI): Soft to palpation and nontender Auscultation: normal bowel sounds Skin General skin exam: no rashes or lesions noted Neuro General: no focal motor deficits Extrem General: Yes full ROM Psych Appearance: grossly normal Assessment and Plan Assessment & Plan (1) Physical exam: Code(s): Z00.00 - Encounter for general adult medical examination without abnormal findings Plan: Repeat in a year. Orders: Orders Comprehensive [place]. Panel Fast Today Z00.00 - Encounter for general adult medical examination without abnormal findings Lipid Panel Today E78.5 - Hyperlipidemia, unspecified, Z00.00 - Encounter for general adult medical examination without abnormal findings Coding Level of Care Code Est Pt Prev Care 40-64y(37327) Diagnoses Physical exam Z00.00 Additional Codes COLLIN-7 Assessment Billing - COLLIN-7 Assessment Tool: COLLIN-7 Assessment 03103 ([id number]) Time Spent (min) 30
== END 2024-06-16 09:02 | disposition home or self-care (01) ==
PROVIDERS: PCP Internal Medicine; Visit Provider Internal Medicine
DX: Z00.00 Encounter for general adult medical examination without abnormal findings (principal)
CPT/HCPCS: 99396

== ENCOUNTER 2024-08-04 09:08 | Outpatient (REF) | payer OTHER, SELFPAY ==
[2024-08-04 10:17] LABS: Alanine Aminotransferase 20 U/L (0-31); Albumin Level 4.4 g/dL (3.5-5.0); Alkaline Phosphatase 58 U/L (39-117); Anion Gap 12 (12-20); Aspartate Amino Transferase 16 U/L (5-31); Bilirubin Total 0.5 mg/dL (0.0-1.0); Blood Urea Nitrogen 14 mg/dL (9-16); Calcium 10.1 mg/dL (8.4-10.2); Carbon Dioxide 28 mmol/L (22-29); Chloride 104 mmol/L (96-108); Cholesterol 272 mg/dL (<200); Estimated Glomerular Filt Rate > 60; Glucose Fasting 105 mg/dL (60-99); HDL Cholesterol 41 mg/dL (>40); LDL Cholesterol Calculated 191 mg/dL (<100); Potassium 3.8 mmol/L (3.3-5.1); Sodium 140 mmol/L (135-145); Total Protein 7.4 g/dL (6.5-8.0); Triglycerides 204 mg/dL (<150)
== END 2024-08-04 09:09 | disposition home or self-care (01) ==
LOC: HO.LAB 09:08
PROVIDERS: PCP Internal Medicine; Visit Provider Internal Medicine
DX: Z00.00 Encounter for general adult medical examination without abnormal findings (principal); E78.5 Hyperlipidemia, unspecified
CPT/HCPCS: 36415; 80053; 80061

== ENCOUNTER 2025-04-19 08:29 | Outpatient (REF) | payer OTHER, SELFPAY ==
--- OUTSIDE RECORDS SUMMARY | 2025-04-19 08:49 | XMS_ITS | Encounter Summary ---
Author Organization [employer] Address [address] [place] [address] Care Team Providers Care Bird Sitter Name Role Phone Unavailable Primary Care Provider Unavailabl e Encounter Details Date Type Department Care Team (Latest Contact Info) Description 09/22/2020 Abstract [facility] CONVERSIONS Dental, Provider, DDS Social History Tobacco Use Types Packs/Day Years Used Date Smoking Tobacco: Never Assessed Comments Unknown Sex and Gender Information Value Date Recorded Sex Assigned at Female 09/23/2022 10:23 AM EDT Legal Sex Female 10:23 AM EDT Gender Identity Female 09/23/2022 10:23 AM EDT Sexual Orientation Choose not to disclose 2021 10:23 AM EDT documented as of this encounter Plan of Treatment Not on file documented as of this encounter Visit Diagnoses Not on filedocumented in this encounter
== END 2025-04-19 08:30 | disposition home or self-care (01) ==
LOC: HO.MAMMO 08:29
PROVIDERS: PCP Internal Medicine; Visit Provider Internal Medicine
DX: Z12.31 Encounter for screening mammogram for malignant neoplasm of breast (principal)
CPT/HCPCS: 77063; 77067

== ENCOUNTER → 2025-04-19 08:45 | Outpatient (BNV) | payer OTHER, SELFPAY | PROVIDERS: PCP Internal Medicine; Visit Provider Internal Medicine | DX: Z12.31 Encounter for screening mammogram for malignant neoplasm of breast (principal) | CPT/HCPCS: 77063; 77067 ==

== ENCOUNTER 2025-06-20 08:09 | Outpatient (AMB) | payer OTHER, SELFPAY ==
--- OUTSIDE RECORDS SUMMARY | 2025-06-20 08:17 | XMS_ITS | Encounter Summary ---
Author Organization [employer] Address [address] [place] [address] Care Team Providers Care Interactive Developer Name Role Phone Unavailable Primary Care Provider Unavailabl e Encounter Details Date Type Department Care Team (Latest Contact Info) Description 09/22/2020 Abstract [facility] CONVERSIONS Dental, Provider, DDS Social History Tobacco [...]
--- NOTE | 2025-06-20 08:23 | MHC.PC.OV ---
Vital Signs 06/20/25 08:25 Height 5 ft 1 in Weight 137 lb BMI 25.9 BP 112/70 Blood Pressure Location Lt brachial Position Sitting Intake Visit Reasons: PE Intake Note: Patient here for a physical exam Dean Of Men Required: No Accompanied by: Self / Same As Patient Allergies No Known Allergies Allergy (Unknown, Verified 06/20/25 08:40) UNKNOWN Medication List - Last Reconciled 06/20/25 by Yissel Davidson MD No Known Home Meds Tobacco use date assessed: 06/20/25 Dental Screening Dental Screen Date: 06/20/25 Did you have a dental visit in the last 12 months?: Yes Did you have a dental problem in the last 6 months where you did not have access to dental care?: No Was dental information given to patient?: Patient has dentist HPI HPI Comments History of Present Illness Details The patient is a 44-year-old female presenting for an annual physical examination. She denies any acute complaints. Denies any depression or anxiety. Last Pap smear was normal and it was less than 2 years ago. During the visit, it was noted that the patient's last tetanus vaccination was over ten years ago, indicating that it is overdue. The patient consumes beer occasionally. [facility] Medical History Overweight (BMI 25.0-29.9) Sacral pain Dyslipidemia Allergic rhinitis Surgical History History of tubal ligation Family History Mother Diabetes mellitus Father No problems noted. Social History Housing: Apartment Alcohol intake: current Alcohol intake frequency: holidays/special occasions only Alcohol type: beer Patient Tobacco Use Status: Never used Tobacco e-Cigarette/Vaping Use: Never Used Second Hand Smoke Exposure: No service: No Current occupational status: employed Current occupational exposures/hazards: No Cognitive needs: No Hearing needs: No Vision needs: No Female Reproductive History Menstrual Age of Menarche: 15 Questionnaire PHQ-9 Over the last 2 weeks, how often have you been bothered by any of the following problems? 1. Little interest or pleasure in doing things: not at all 2. Feeling down, depressed, or hopeless: not at all 3. Trouble falling or staying asleep, or sleeping too much: not at all 4. Feeling tired or having little energy: not at all 5. Poor appetite or overeating: not at all 6. Feeling bad about yourself - or that you are a failure or have let yourself or your family down: not at all 7. Trouble concentrating on things, such as reading the newspaper or watching television: not at all 8. Moving or speaking so slowly that other people could have noticed. Or the opposite - being so fidgety or restless that you have been moving around a lot more than usual: not at all 9. Thoughts that you would be better off or of hurting yourself in some way: not at all Total score: 0 Depression Screening Interpretation: Negative Depression Screening Done: Yes 34410 - PHQ-9 Billing: Yes Source: Developed by Drs. John Irby, Lashell Hart, Nicolas Betancur and colleagues, with an educational toño from [employer]. Thrive Questionnaire Date Thrive assessed: 06/18/25 I am a: Patient What is your living situation today?: I have a steady place to live Within the past 12 months, did the food you bought not last and you didn't have the money to get more?: Never true Within the past 12 months, did you worry whether your food would run out before you got money to buy more?: Sometimes True Do you have trouble paying for medicines?: No Do you have trouble getting transportation to medical appointments?: No Do you have trouble paying your heating and electricity bill?: No Do you have trouble taking care of your child, family member or friend?: No Do you have trouble with day-to-day activities such as bathing, preparing meals, shopping, managing finances, etc.?: No Are you currently unemployed and looking for a job?: Yes Are you interested in more education?: Yes Please select the resources that you would like help with: Job search/training Currently or been in a relationship where the following occur: No concerns reported THRIVE Score: 1 AUDIT C Alcohol Use Questionnaire (AUDIT-C) 1. How often do you have a drink containing alcohol?: Monthly or less 2. How many drinks containing alcohol do you have on a typical day when you are drinking?: 1 or 2 3. How often do you have six or more drinks on one occasion?: Never Total Score: 1 Score Reviewed/Action Taken: No COLLIN-7 AMB Questionnaire COLLIN-7 Date COLLIN - 7 assessed: 06/20/25 Feeling nervous, anxious, or on edge: 0 = Not at all Not being able to stop or control worryin = Not at all Worrying too much about different things: 0 = Not at all Trouble relaxin = Not at all Being so restless that it is hard to sit still: 0 = Not at all Becoming easily annoyed or irritable: 1 = Several days Feeling afraid as if something awful might happen: 0 = Not at all Total COLLIN-7 score (0-4 normal; 5-9 mild; 10-14 moderate; 15-21 severe): 1 Source: Developed by Drs. John Irby, Lashell Hart, Nicolas Betancur and colleagues, with an educational toño from [employer]. COLLIN-7 Assessment Billing COLLIN-7 Assessment Tool: COLLIN-7 Assessment 81493 Review of Systems Const All systems reviewed & are unremarkable except as noted in HPI and below Card Denies chest pain at rest, Denies chest pain with activity, Denies edema, Denies irregular heart rhythm, Denies claudication, Denies dyspnea, Denies dyspnea on exertion, Denies orthopnea, Denies paroxysmal nocturnal dyspnea and Denies slow heart rate Resp Denies cough, Denies dyspnea and Denies dyspnea on exertion GI Denies abdominal pain, Denies change in bowel habits, Denies excessive flatus, Denies nausea and Denies vomiting Denies urinary incontinence, Denies urinary hesitancy and Denies urinary urgency Musc Denies abnormal gait, Denies atrophy, Denies deformity and Denies limited range of motion Skin/Breast Denies bleeding lesions, Denies changing lesions and Denies rash Neuro Denies abnormal gait, Denies behavioral changes and Denies lack of coordination Psych Denies behavioral changes Physical exam (Primary Care) Vital Signs: Last Vital Signs BP 112/70 06/20/25 08:25 BMI result Body Mass Index 25.9 Tobacco/Smoking Status: Tobacco use Status Tobacco use date assessed 06/20/25 06/20/25 08:29 Patient Tobacco Use Status Never used Tobacco 06/20/25 08:23 e-Cigarette/Vaping Use Never Used 06/20/25 08:23 PHQ-9: PHQ-9 Score PHQ-9: Total score 0 06/20/25 08:48 Depression Screening Interpretation: Negative Thrive Assessment: Date of Thrive Assessment Date Thrive assessed 06/18/25 06/20/25 08:23 Currently or been in a relationship where the following occur: No concerns reported HENVA Head: Yes normal to inspection, Yes normocephalic and Yes atraumatic Ears: external ears normal Eyes General: appearance normal, both eyes and all related structures Eyelids: Yes eyelids normal Conjunctivae: conjunctivae normal Neck Neck: Yes normal visual inspection and Yes supple Resp Effort & Inspection: normal respiratory effort Auscultation: clear to auscultation bilaterally Cardio Jugular venous distension: no JVD Rate: regular rate Rhythm: regular rhythm Heart sounds: S1 normal heart sound present and S2 normal heart sound present GI Inspection: Yes normal to inspection Palpation (GI): Soft to palpation and nontender Auscultation: normal bowel sounds Skin General skin exam: no rashes or lesions noted Neuro General: no focal motor deficits Extrem General: Yes full ROM Psych Appearance: grossly normal Immunizations Boostrix Tdap 2.5 Lf unit-8 mcg-5 Lf/0.5 mL intramuscular syringe Performing Provider: Yissel Davidson MD [facility] Administered by: LIZBET Jorge on 06/20/25 08:52 Dose Route Admin Location Dispensed Lot Number Expiration Date [facility] Research Laboratory Technician 0.5 mL IM Left Deltoid 0.5 mL [id number] 01/14/27 33967-241-55 [id number] Total Dispensed Waste 0.5 mL 0 % VIS Given Date VIS Provided VIS Publication Date 06/20/25 Single Vaccine 24 Eligibility Eligibility Date Funding Source Not [facility] Eligible 06/20/25 Private Coding Level of Care Code Est Pt Prev Care 40-64y(82936) Diagnoses Physical exam Z00.00 Additional Codes COLLIN-7 Assessment Billing - COLLIN-7 Assessment Tool: COLLIN-7 Assessment 21886 ([id number]) PHQ-9 - 48900 - PHQ-9 Billing: Yes ([id number]) Time Spent (min) 31 Assessment & Plan Assessment & Plan (1) Physical exam: Code(s): Z00.00 - Encounter for general adult medical examination without abnormal findings Category: Medical Plan The patient will receive a tetanus vaccination during this visit as it has been over ten years since the last dose. Fasting labs are to be completed within the next three months, with results to be sent by mail. Patient was informed and verbally consented to the use of an ambient scribe for clinic note documentation during this visit. Orders: Orders Comprehensive [place]. Panel Fast Today Z00.00 - Encounter for general adult medical examination without abnormal findings TDaP Immunization Today Z23 - Encounter for immunization Lipid Panel Today E78.5 - Hyperlipidemia, unspecified
[2025-06-20 08:25] VITALS: BP 112/70; BMI 25.9
== END 2025-06-20 08:54 | disposition home or self-care (01) ==
LOC: HO.HMCH 08:10
PROVIDERS: PCP Internal Medicine; Visit Provider Internal Medicine
DX: Z23 Encounter for immunization (principal); Z00.00 Encounter for general adult medical examination without abnormal findings

== ENCOUNTER → 2025-06-20 08:09 | Outpatient (BNVA) | payer OTHER, SELFPAY | PROVIDERS: PCP Internal Medicine; Visit Provider Internal Medicine | DX: Z00.00 Encounter for general adult medical examination without abnormal findings (principal); E78.5 Hyperlipidemia, unspecified; Z23 Encounter for immunization | CPT/HCPCS: 90471; 90715; 96127; 99396 ==

== ENCOUNTER 2025-06-23 08:01 | Outpatient (REF) | payer OTHER, SELFPAY ==
--- OUTSIDE RECORDS SUMMARY | 2025-06-23 08:05 | XMS_ITS | Encounter Summary ---
Author Organization [employer] Address [address] [place] [address] Care Team Providers Care Buildings And Grounds Director Name Role Phone Unavailable Primary Care Provider Unavailabl e Encounter Details Date Type Department Care Team (Latest Contact Info) Description 09/22/2020 Abstract [facility] CONVERSIONS Dental, Provider, DDS Social History [...]
[2025-06-23 09:19] LABS: Alanine Aminotransferase 23 U/L (0-31); Albumin Level 4.5 g/dL (3.5-5.0); Alkaline Phosphatase 51 U/L (39-117); Anion Gap 11 (12-20); Aspartate Amino Transferase 20 U/L (5-31); Blood Urea Nitrogen 13 mg/dL (9-16); Calcium 9.0 mg/dL (8.4-10.2); Carbon Dioxide 23 mmol/L (22-29); Chloride 108 mmol/L (96-108); Cholesterol 217 mg/dL (<200); Estimated Glomerular Filt Rate > 60; HDL Cholesterol 38 mg/dL (>40); Potassium 3.5 mmol/L (3.3-5.1); Sodium 138 mmol/L (135-145); Total Protein 7.1 g/dL (6.5-8.0); Triglycerides 120 mg/dL (<150)
== END 2025-06-23 08:02 | disposition home or self-care (01) ==
LOC: HO.LAB 08:01
PROVIDERS: PCP Internal Medicine; Visit Provider Internal Medicine
DX: Z00.00 Encounter for general adult medical examination without abnormal findings (principal); E78.5 Hyperlipidemia, unspecified
CPT/HCPCS: 36415; 80053; 80061

== ENCOUNTER 2025-10-03 09:55 | Outpatient (AMB) | payer OTHER, SELFPAY ==
--- NOTE | 2025-10-03 10:08 | AM.OFFVISNUR ---
Intake Visit Reasons: tb-forearm Allergies No Known Allergies Allergy (Unknown, Verified 06/20/25 08:40) UNKNOWN Office Meds tuberculin PPD 5 tub. unit/0.1 mL intradermal injection solution Performing Provider: Yissel Davidson MD [facility] [place] [facility] Administered by: Juliet Elizondo LPN on 10/03/25 10:00 Dose Route Admin Location Dispensed Lot Number Expiration Date [facility] Crop Puller 0.1 mL intradermal left forearm 0.1 mL [id number] 12/23/27 85779-150-19 [employer] Total Dispensed Waste 0.1 mL 0 % Assessment & Plan Assessment & Plan Orders: Orders AMB PPD Planted Today Z11.1 - Encounter for screening for respiratory tuberculosis Coding
--- OUTSIDE RECORDS SUMMARY | 2025-10-03 11:24 | XMS_ITS | Encounter Summary ---
Author Organization [employer] Address [address] [place] [address] Care Team Providers Care Gravity Meter Operator Name Role Phone Unavailable Primary Care Provider Unavailabl e Encounter Details Date Type Department Care Team (Latest Contact Info) Description 02/15/2019 Abstract [facility] CONVERSIONS Dental, Provider, DDS Social History Tobacco [...]
--- OUTSIDE RECORDS SUMMARY | 2025-10-03 11:24 | XMS_ITS | Encounter Summary ---
Author Organization [employer] Address [address] [address] [address] [place] [address] Care Team Providers Care Ware Dresser Name Role Phone Unavailable Primary Care Provider Unavailabl e Encounter Details Date Type Department Care Team (Latest Contact Info) Description 08/20/2022 Abstract [facility] CONVERSIONS Dental, Provider, DDS Social History [...]
--- OUTSIDE RECORDS SUMMARY | 2025-10-03 11:24 | XMS_ITS | Encounter Summary ---
Author Organization [employer] Address [address] [place] [address] Care Team Providers Care Commercial Intern Name Role Phone Unavailable Primary Care Provider Unavailabl e Encounter Details Date Type Department Care Team (Latest Contact Info) Description 09/22/2020 Abstract [facility] CONVERSIONS Dental, Provider, DDS Social History [...]
--- OUTSIDE RECORDS SUMMARY | 2025-10-03 11:24 | XMS_ITS | Encounter Summary ---
Author Organization [employer] Address [address] [place] [address] Care Team Providers Care Diamond Saw Operator Name Role Phone Unavailable Primary Care Provider Unavailabl e Encounter Details Date Type Department Care Team ([facility] st Contact Info) Description 01/24/2023 Abstract [facility] [address] [place] [address] Becky Rubio, DDS [address] [place] [address] Social History Tobacco Use Types Packs/Day Years Used Date Smoking Tobacco: Never Smokeless Tobacco: Never Comments Unknown Sex and Gender Information Value Date Recorded Sex Assigned at Female 09/23/2022 10:23 AM EDT Legal Sex Female 10:23 AM EDT Gender Identity Female 09/23/2022 10:23 AM EDT Sexual Orientation Choose not to disclose 2021 10:23 AM EDT COVID-19 Exposure Response Date Recorded In the last 10 days, have yo u been in contact with someone who was confirmed or suspected to have Coronavirus/COVID-19? No / Unsure 01/22/2023 8:39 AM EST documented as of this encounter Plan of Treatment Not on file documented as of this encounter Visit Diagnoses Not on filedocumented in this encounter
--- OUTSIDE RECORDS SUMMARY | 2025-10-03 11:24 | XMS_ITS | Clinical Summary ---
Author Organization [employer] Address [address] [address] [place] [address] Care Team Providers Care Security Coordinator Name Role Phone Unavailable Primary Care Provider Unavailabl e Allergies No known active allergies Medications atorvastatin (Lipitor) 20 MG tablet Take 20 mg by mouth at bedtime. 08/24/2022 Active Sodium Fluoride (PreviDent 5000 Plus) 1.1 % cream Apply 100 mg to teeth 3 times daily. 1 g 3 11/11/2023 Active Immunizations Immunization Administration Dates Next Due Tdap 06/17/2010 Social History Tobacco Use Types Packs/Day Years Used Date Smoking Tobacco: Never Smokeless Tobacco: Never Tobacco Cessation:Counseling Given: Not Answered Comments Unknown Sex and Gender Information Value Date Recorded Sex Assigned at Female 09/23/2022 10:23 AM EDT Legal Sex Female 10:23 AM EDT Gender Identity Female 09/23/2022 10:23 AM EDT Sexual Orientation Choose not to disclose 2021 10:23 AM EDT Last Filed Vital Signs Vital Sign Reading Time Taken Comments Blood Pressure 120/80 11/11/2023 9:18 AM EST Pulse - - Temperature - - Respiratory Rate - - Oxygen Saturation - - Inhaled Oxygen Concentration - - Weight - - Height - - Body Mass Index - - Plan of Treatment Health Maintenance Due Date Last Done Comments Dental Oral Exam 1981 Dental Prophylaxis 1981 Dental X-Ray: Full Mouth 1981 Depression Screening 1981 HIV Screening 1981 SDOH Screening 1981 Disability Screening 1981 Alcohol/Substance Use Screening 1993 Family Planning (PISQ) 1996 HPV Vaccines (1 - 3-dose series) 1996 Hepatitis C Screening 1999 Hepatitis B Vaccines (1 of 3 - 19+ 3-dose series) 2000 Pap Smear 2002 Cervical Cancer Screening 2011 HPV/Cotest 2011 DTaP/Tdap/Td Vaccines (2 - T d or Tdap) 06/17/2020 06/17/2010 Mammogram 2021 Tobacco Screening 11/11/2024 11/11/2023 Dental X-Ray: Bitewings 11/12/2024 11/11/2023 COVID-19 Vaccine (1 - 2023-2 5 season) 2025 Influenza Vaccine (#1) 2025 Zoster Vaccines (1 of 2) 2031 RSV Patients and Pa tients Aged 60 years or older (1 - 1-dose 75+ series) 2056 HIB Vaccines Aged Out No longer eligi ble based on patient's age to complete this topic Hepatitis A Vaccines Aged Out No long er eligible based on patient's age to complete this topic IPV Vaccines Aged Out No longer eligi ble based on patient's age to complete this topic Meningococcal B Vaccine Aged Out No l onger eligible based on patient's age to complete this topic Meningococcal Vaccine Aged Out No surya gerald eligible based on patient's age to complete this topic Pneumococcal Vaccine: Pediat rics (0 to 5 Years) and At-Risk Patients (6 to 49) Years Aged Out No longer eligi ble based on patient's age to complete this topic RSV under 20 months Aged Out No longe r eligible based on patient's age to complete this topic Rotavirus Vaccines Aged Out No longer eligible based on patient's age to complete this topic Procedures Procedure Name Priority Date/Time Associated Diagnosis Comments BITEWING - SINGLE RADIOGRAPHIC IMAGE Routine 11/11/2023 9:30 AM EST Dental caries from Last 3 Months or Most Recently Relevant to Health Maintenance Insurance [facility] STAND ADULT
== END 2025-10-03 10:03 | disposition home or self-care (01) ==
LOC: HO.HMCH 09:56
PROVIDERS: PCP Internal Medicine; Visit Provider Internal Medicine
DX: Z11.1 Encounter for screening for respiratory tuberculosis (principal)

== ENCOUNTER → 2025-10-03 09:55 | Outpatient (BNVA) | payer OTHER, SELFPAY | PROVIDERS: PCP Internal Medicine; Visit Provider Internal Medicine | DX: Z11.1 Encounter for screening for respiratory tuberculosis (principal) | CPT/HCPCS: 86580 ==